=== PATIENT | female | born 1945 | race Caucasian/White ===

== ENCOUNTER 2017-03-30 07:03 | Day surgery (SDC) | payer BC, MEDICARE ==
[2017-03-30] MEDS ORDERED: fentaNYL 100 MCG/2 ML SDV ONE (07:57)
[2017-03-30] MEDS ORDERED: Midazolam 1 MG/ML 2 ML SDV ONE (07:57)
[2017-03-30] MEDS ORDERED: Propofol 200 MG/20 ML SDV ONE ×2 (07:57→09:15)
[2017-03-30] MEDS ORDERED: ceFAZolin 2 GM in Sodium Chloride 0.9% 50 ML IV ONE (08:00)
[2017-03-30] MEDS ORDERED: ceFAZolin 2 GM in Premix Bag 1 BAG IV ONE (08:00)
[2017-03-30] MEDS ORDERED: Sodium Chloride 0.9% 1,000 ML IV SCH (08:00)
[2017-03-30] MEDS ORDERED: Bupivacaine 0.5% 50 ML MDV ONE (09:06)
[2017-03-30] MEDS ORDERED: Lidocaine 1% with EPINEPHrine 1:100,000 50 ML MDV ONE (09:06)
[2017-03-30 10:05] VITALS: BP 102/50
--- NOTE | 2017-04-29 09:52 | OR ---
DATE OF PROCEDURE: 03/30/2017 PROCEDURE: 1. Repair of umbilical hernia, approximately 5-8 mm. 2. Excision of abdominal mass, approximately 3 cm. COMPLICATIONS: None. CAPACITY PLANNER: None. ANESTHESIA: MAC/local. RISKS: Risks, benefits, alternatives, limitations including, but not limited to infection, bleeding, and injury to abdominal structures were explained to the patient. MESH USED: None. INDICATIONS: A pleasant 71-year-old female with an incisional hernia from a previous laparoscopic hysterectomy. In addition, the patient has a mass 1 cm superior to this. 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 Therefore, the best determining course was to repair of the small hernia and excise the mass simultaneously. PROCEDURE IN DETAIL: The patient was placed in supine position. A linear incision was made at the junction between the mass and the hernia. The hernia was then dissected down 1st. This was small in size. The size was approximately 5-8 mm. This was repaired using interrupted #1 Vicryl sutures. No mesh was used. The mass was then excised using electrocautery. Everything was thoroughly irrigated and closed with interrupted 3-0 Vicryl and 4-0 Prolene and a dressing was applied. The patient tolerated the procedure well. Dave Enamorado MD /[id number]
== END 2017-03-30 11:55 | disposition home or self-care (01) ==
LOC: JP.SDS 07:03
PROVIDERS: ATTEND Surgery
PROC: 0WQF0ZZ Repair Abdominal Wall, Open Approach (ICD-10-PCS; principal; 2017-03-30)
DX: K43.2 Incisional hernia without obstruction or gangrene (principal); E78.5 Hyperlipidemia, unspecified; Z87.891 Personal history of nicotine dependence; Z90.89 Acquired absence of other organs; Z90.710 Acquired absence of both cervix and uterus
CPT/HCPCS: 49560; 88304; 88331; 93005; J0690; J2250; J2704; J3010; J7040; J7050

== ENCOUNTER 2024-02-13 08:48 | Day surgery (SDC) | payer BC ==
[2024-02-13] MEDS: Sodium Chloride 0.9% 1,000 ML IV SCH (09:25)
[2024-02-13] MEDS ORDERED: fentaNYL 100 MCG/2 ML SDV ONE (09:53)
[2024-02-13] MEDS ORDERED: Propofol 200 MG/20 ML SDV ONE (09:53)
[2024-02-13] MEDS ORDERED: Midazolam 1 MG/ML 2 ML SDV ONE (10:44)
[2024-02-13 11:57] VITALS: BP 115/65; PULSE 61
== END 2024-02-13 12:00 | disposition home or self-care (01) ==
LOC: JP.SDS 08:48
PROVIDERS: ATTEND Surgery
DX: Z12.11 Encounter for screening for malignant neoplasm of colon (principal); Z88.8 Allergy status to other drugs, medicaments and biological substances
CPT/HCPCS: 00812-QZ; J2250; J2704; J3010; J7030